=== PATIENT | female | born 1975 | race African-American/Black ===

== ENCOUNTER 2017-06-16 15:45 | Outpatient (CLI) | payer OTHER | END 2017-06-16 15:46 | disposition home or self-care (01) | LOC: BICMAMMO 15:45 | PROVIDERS: ATTEND Obstetrics & Gynecology | DX: Z12.31 Encounter for screening mammogram for malignant neoplasm of breast (principal) | CPT/HCPCS: 77063; 77067 ==

== ENCOUNTER 2017-08-24 00:48 | Emergency (ER) | payer OTHER ==
[2017-08-24 02:22] LABS: Eosinophils 1 % (0-10); Hemoglobin 13.7 g/dL (12.0-16.0); Lymphocytes 51 % (21-51); MDiff Complete? YES; Mean Corpuscular HGB CONC 32.6 g/dL (32.0-36.0); Mean Corpuscular Hemoglobin 28.4 pg (27.0-31.0); Mean Corpuscular Volume 87.1 fl (81.0-99.0); Mean Platelet Volume 9.1 fL (7.4-10.4); Monocytes 12 % (0-10); Neutrophil 32 % (42-75); PLT Morphology Comment Appears Adequate; Platelet Count 159 thou/uL (130-400); RBC Distribution Width 12.4 % (11.5-14.5); RBC Morphology Normal; Reactive Lymphocytes 4 % (0-10); Red Blood Cell (RBC) Count 4.83 mill/uL (4.20-5.40); White Blood Cell (WBC) Count 4.3 thou/uL (4.8-10.8)
[2017-08-24 02:23] LABS: ALT (SGPT) 27 U/L (8-55); AST (SGOT) 22 U/L (5-34); Albumin 4.2 g/dL (3.5-5.0); Alkaline Phosphatase 105 U/L (40-150); Anion Gap 7 mmol/L (10-20); BUN (Urea Nitrogen) 22 mg/dL (7.0-18.7); Bilirubin, Total 0.3 mg/dL (0.2-1.2); Calc. Creatinine Clearance 0 mL/min (70-130); Carbon Dioxide 32 mmol/L (22-29); Chloride 106 mmol/L (98-107); Estimated GFR-MDRD Greater than 90; Globulin 2.6 g/dL (2.4-3.5); Glucose 100 mg/dL (70-105); Potassium 4.3 mmol/L (3.5-5.1); Protein, Total 6.8 g/dL (6.0-8.3); Sodium 141 mmol/L (136-145)
[2017-08-24 02:58] LABS: CKMB 0.8 ng/mL (0-6.6); Troponin I Less than 0.010 ng/mL (< 0.028)
[2017-08-24] MEDS ORDERED: Ondansetron ODT 4 MG TAB ONE (03:09)
[2017-08-24] MEDS ORDERED: Metoclopramide HCl 10 MG/2 ML VIAL ONE (03:10)
[2017-08-24 03:36] LABS: Bilirubin Negative (Negative); Blood, Urine Negative (Negative); Clarity TURBID (Clear); Glucose, Urine (Dipstick) Negative (Negative); Leukocyte Negative (Negative); Nitrite Negative (Negative); Protein, Urine (Dipstick) Negative (Neg-Trace); Specific Gravity, Urine 1.021 (1.002-1.036); pH, Urine 7.5 (5.0-9.0)
--- NOTE | 2017-08-24 08:06 | RAD ---
SINGLE VIEW OF THE CHEST: COMPARISON: 10/29/16. HISTORY: Chest pain and weakness after eating beans. FINDINGS: Single view of the chest shows a normal sized cardiomediastinal silhouette. There is no evidence of c onsolidation, mass, or pleural effusion. The bones are unremarkable. IMPRESSION: No evidence of acute cardiopulmonary disease. POS: [facility]
== END 2017-08-24 04:17 | disposition home or self-care (01) ==
LOC: ERS 00:48
DX: R10.816 Epigastric abdominal tenderness (principal)
CPT/HCPCS: 36415; 71045; 80053; 81003; 82553; 84484; 85025; 93005; J2765; Q0162

== ENCOUNTER 2018-10-27 12:12 | Emergency (ER) | payer OTHER, SELFPAY ==
--- NOTE | 2018-10-27 12:57 | RAD ---
XR Chest 1 View Portable History: Chest pain Comparison: Radiograph 08/24/2017 Findings: Lungs are clear. No pneumothorax. No effusion. No acute osseous abnormality. Impression: No acute intrathoracic abnormality.
[2018-10-27 13:30] LABS: #Basophils 0.1 thou/uL (0.0-0.2); #Eosinphils 0.1 thou/uL (0.0-0.7); #Lymphocytes 1.7 thou/uL (1.20-3.40); #Monocytes 0.3 thou/uL (0.11-0.59); #Neutrophils 1.4 thou/uL (1.40-6.50); %Basophils 2.9 % (0.0-1.0); %Eosinophils 2.4 % (0.0-10.0); %Lymphocytes 46.8 % (21.0-51.0); %Monocytes 9.4 % (0.0-10.0); %Neutrophils 38.5 % (42.0-75.0); Hemoglobin 13.6 g/dL (12.0-16.0); Mean Corpuscular HGB CONC 33.6 g/dL (32.0-36.0); Mean Corpuscular Volume 86.4 fL (78.0-98.0); Mean Platelet Volume 9.6 fL (7.4-10.4); Platelet Count 148 thou/uL (130-400); RBC Distribution Width 12.3 % (11.5-14.5); Red Blood Cell (RBC) Count 4.71 mill/uL (4.20-5.40); White Blood Cell (WBC) Count 3.5 thou/uL (4.8-10.8)
[2018-10-27 13:32] LABS: Bilirubin Negative (Negative); Blood, Urine Negative (Negative); Clarity CLEAR (Clear); Glucose, Urine (Dipstick) Negative (Negative); Leukocyte Trace (Negative); Nitrite Negative (Negative); Protein, Urine (Dipstick) Negative (Neg-Trace); Specific Gravity, Urine 1.017 (1.002-1.036)
[2018-10-27 13:38] LABS: Bacteria/HPF None Seen HPF (None Seen); Hyaline Casts/LPF 0-3 HYALINE CAST LPF (0-3 Hyaline); RBC/HPF 0-3 HPF (0-3); Squamous Epithelial None Seen HPF (0-3); WBC/HPF 0-3 HPF (0-3)
[2018-10-27 13:47] LABS: ALT (SGPT) 30 U/L (8-55); AST (SGOT) 26 U/L (5-34); Albumin 4.4 g/dL (3.5-5.0); Alkaline Phosphatase 101 U/L (40-150); Anion Gap 11 mmol/L (10-20); BUN (Urea Nitrogen) 23 mg/dL (7.0-18.7); Bilirubin, Total 0.6 mg/dL (0.2-1.2); CK (CPK) 94 U/L (29-168); Calc. Creatinine Clearance 0 mL/min (70-130); Calcium 10.2 mg/dL (7.8-10.44); Carbon Dioxide 28 mmol/L (22-29); Chloride 103 mmol/L (98-107); Estimated GFR-MDRD 88; Globulin 2.6 g/dL (2.4-3.5); Glucose 78 mg/dL (70-105); Lipase 32 U/L (8-78); Potassium 4.6 mmol/L (3.5-5.1); Sodium 137 mmol/L (136-145)
--- NOTE | 2018-10-29 15:09 | EKG ---
Test Reason : NEAR SYNCOPE Blood Pressure : / mmHG Vent. Rate : 058 BPM Atrial Rate : 058 BPM P-R Int : 170 ms QRS Dur : 090 ms QT Int : 386 ms P-R-T Axes : 083 071 068 degrees QTc Int : 378 ms Sinus bradycardia with sinus arrhythmia Otherwise normal ECG Confirmed by GAYE ADKINS ([id number]), food editor YAZMIN MACE ([id number]) on 10/29/2018 3:08:53 PM Referred By: LUCILLE Confirmed By:GAYE ADKINS
== END 2018-10-27 14:50 | disposition home or self-care (01) ==
LOC: ERS 12:12
DX: R07.9 Chest pain, unspecified (principal); R55 Syncope and collapse; E78.5 Hyperlipidemia, unspecified
CPT/HCPCS: 36415; 71045; 80053; 81003; 81015; 82550; 83690; 83880; 84484; 85025; 93005

== ENCOUNTER 2019-08-11 10:25 | Emergency (ER) | payer SELFPAY ==
--- NOTE | 2019-08-11 11:01 | RAD ---
XR Chest 1 View Portable HISTORY: Chest pain COMPARISON: 10/27/2018 FINDINGS: The heart size is normal. The lungs are well expanded without focal areas of consolidation, pneumothorax or pleural effusions. IMPRESSION: No radiographic evidence of acute cardiopulmonary process.
== END 2019-08-11 12:55 | disposition home or self-care (01) ==
LOC: ERS 10:25
DX: B34.9 Viral infection, unspecified (principal); E78.5 Hyperlipidemia, unspecified; Z79.899 Other long term (current) drug therapy
CPT/HCPCS: 71045; 93005

== ENCOUNTER 2020-04-04 15:43 | Outpatient (CLI) | payer MEDICAID ==
--- NOTE | 2020-04-04 16:11 | MMO ---
Bilateral MAMMO Bilat Screen [facility]. CLINICAL HISTORY: Patient is 44 years old and is seen for screening. The patient has no family history of breast cancer. The patient has no personal history of cancer. VIEWS: The views performed were: bilateral craniocaudal and bilateral mediolateral oblique. FILMS COMPARED: The present examination has been compared to prior imaging studies performed at [facility] on 06/10/2015, 05/27/2016, 06/16/2017 and 03/03/2019. This study has been interpreted with the assistance of computer-aided detection. MAMMOGRAM FINDINGS: There are scattered fibroglandular densities. There are no suspicious masses, suspicious calcifications, or new areas of architectural distortion. IMPRESSION: THERE IS NO MAMMOGRAPHIC EVIDENCE OF MALIGNANCY. A ROUTINE FOLLOW-UP MAMMOGRAM IN 1 YEAR IS RECOMMENDED. ACR BI-RADS Category 1 - Negative MAMMOGRAPHY NOTE: 1. A negative mammogram report should not delay a biopsy if a dominant of clinically suspicious mass is present. 2. Approximately 10% to 15% of breast cancers are not detected by mammography. 3. Adenosis and dense breasts may obscure an underlying neoplasm. Reported by: MCKINLEY SOMMERS MD Electonically Signed: [id number]
== END 2020-04-04 15:44 | disposition home or self-care (01) ==
LOC: BICMAMMO 15:43
PROVIDERS: ATTEND Family Medicine
DX: Z12.31 Encounter for screening mammogram for malignant neoplasm of breast (principal)
CPT/HCPCS: 77067

== ENCOUNTER 2020-06-02 08:30 | Emergency (ER) | payer MEDICAID, SELFPAY ==
[2020-06-02 17:58] LABS: SARS-CoV-2 PCR by NAA DETECTED (NotDetected)
== END 2020-06-02 09:30 | disposition home or self-care (01) ==
LOC: ERS 08:30
DX: U07.1 COVID-19 (principal); E78.5 Hyperlipidemia, unspecified; E78.00 Pure hypercholesterolemia, unspecified
CPT/HCPCS: 87635; 93005; U0003; U0005

== ENCOUNTER 2025-01-13 03:00 | Emergency (ER) | payer OTHER ==
[2025-01-13] MEDS ORDERED: Acetaminophen 325 MG TAB ONE (03:31)
== END 2025-01-13 05:00 | disposition home or self-care (01) ==
LOC: ERS 03:00
DX: R51.9 Headache, unspecified (principal); Y04.8XXA Assault by other bodily force, initial encounter; Y93.89 Activity, other specified; Y99.0 Civilian activity done for income or pay
CPT/HCPCS: 70486